=== PATIENT | female | born 1975 | race Caucasian/White ===

== ENCOUNTER 2019-07-24 22:56 | Emergency (ER) | payer SELFPAY ==
[2019-07-24] MEDS ORDERED: Benzocaine 20% Topical Spray UD MUCMEM ONE (23:00)
--- NOTE | 2019-07-24 23:02 | EDM.PDOC ---
ED HPI GENERAL MEDICAL PROBLEM - General Stated Complaint: TOOTH ACHE Time Seen by Provider: 07/24/19 23:00 Source of Information: Reports: Patient History Limitations: Reports: No Limitations - History of Present Illness INITIAL COMMENTS - FREE TEXT/NARRATIVE: HISTORY AND PHYSICAL: History of present illness: Patient is a 43-year-old female presenting to the emergency department for the chief complaint of tooth abscess. She states that she is managing this abscess with her dental provider and is scheduled to have her affected tooth pulled on August 01. She is states this has been going on for one month and was prescribed amoxicillin in the past, however it did not fully take the infection away. She states that her pain has increased today, rating it at a 10 out of 10. She describes it as throbbing and aching and has no found no alleviating factors. She also stated that she has pain in her ears bilaterally, on the left side of her head and jaw, and a pain in her throat. Patient was nauseated and dry heaved while talking, otherwise denies GI or complaints. Review of systems: As per history of present illness and below otherwise all systems reviewed and negative. Past medical history: As per history of present illness and as reviewed below otherwise noncontributory. Surgical history: As per history of present illness and as reviewed below otherwise noncontributory. Social history: See social history for further information Family history: As per history of present illness and as reviewed below otherwise noncontributory. Physical exam: General: Patient is a well-nourished and well-developed 43-year-old female. Alert and orientated. Nontoxic in appearance. Vital signs stable and reviewed by me. HEENT: Tender to palpation along left side of jaw, normocephalic, pupils equal and reactive bilaterally, negative for conjunctival pallor or scleral icterus, mucous membranes moist, TMs bulging bilaterally, throat clear, neck supple, trachea midline. Edematous and erythematous along the gumline of left upper #14 and #15 tooth, No drooling or trismus noted. No meningeal signs. No hot potato voice noted. Lungs: Clear to auscultation, breath sounds equal bilaterally, chest nontender. Heart: S1S2, regular rate and rhythm without overt murmur Abdomen: Soft, nondistended, nontender. Skin: Intact, warm, dry. No lesions or rashes noted. Extremities: Atraumatic, moves all extremities per self without difficulty or deficits, negative for cords or calf pain. Neurovascular unremarkable. Neuro: Awake, alert, oriented. Cranial nerves II through XII unremarkable. Cerebellum unremarkable. Motor and sensory unremarkable throughout. Exam nonfocal. Notes: Patient is a recovering addict and is requesting a pain medication without narcotics as they were offered to her. Supportive care measures were reviewed and discussed. Voices understanding and is agreeable to plan of care. Denies any further questions or concerns at this time. Diagnostics: None Therapeutics: Dental Balls, Torodol, Zofran Prescription: Diclofenac, Clindamycin Impression: Abcessed Tooth Plan: 1. Please take the antibiotic as prescribed. 2. Tylenol and/or ibuprofen as needed for pain management. "Tooth Balls" have been given to you; apply along the gumline every 2-3 hours as needed. Do not swallow these; external use only. 3. Follow-up with a dentist for definitive care. Return to the ED as needed and as discussed. Definitive disposition and diagnosis as appropriate pending reevaluation and review of above. dental Pain Score (Numeric/FACES): 10 - Related Data Allergies Allergy/AdvReac Type Severity Reaction Status Date / Time No Known Allergies Allergy Verified 07/24/19 23:14 Home Meds: Home Meds . [No Known Home Meds] 07/24/19 [History] ED ROS ENT - Review of Systems Review Of Systems: ROS reveals no pertinent complaints other than HPI. ED EXAM, ENT - Physical Exam Exam: See Below (See Dictation) Course - Vital Signs Last Recorded V/S: Last Vital Signs Temp 96.3 F 07/24/19 23:03 Pulse 84 07/24/19 23:03 Resp 17 07/24/19 23:03 BP 151/88 H 07/24/19 23:03 Pulse Ox 96 07/24/19 23:03 - Orders/Labs/Meds Meds: Medications Discontinued Medications Generic Name Dose Route Start Last Admin Trade Name Freq PRN Reason Stop Dose Admin Hydrocodone Bitart/Acetaminophen 1 tab 07/24/19 23:23 [place] 325-5 Mg PO 07/24/19 23:24 ONETIME ONE Benzocaine 1 each 07/24/19 23:00 07/24/19 23:16 Hurricaine One 20% MUCMEM 07/24/19 23:01 1 each ONETIME ONE Administration Clindamycin HCl 300 mg 07/24/19 23:23 07/24/19 23:30 Cleocin PO 07/24/19 23:24 300 mg ONETIME ONE Administration Ketorolac Tromethamine 60 mg 07/24/19 23:30 Toradol IM 07/24/19 23:31 ONETIME ONE Lidocaine HCl 15 ml 07/24/19 23:00 07/24/19 23:16 Xylocaine 2% Viscous PO 07/24/19 23:01 15 ml ONETIME ONE Administration Ondansetron HCl 4 mg 07/24/19 23:23 07/24/19 23:29 Zofran Odt PO 07/24/19 23:24 4 mg ONETIME ONE Administration Departure - Departure Time of Disposition: 23:35 Disposition: Home, Self-Care 01 Clinical Impression: Dental abscess - Discharge Information Instructions: Dental Abscess, [id number] Referrals: PCP,None [Primary Care Provider] - Additional Instructions: The following information is given to patients seen in the emergency department who are being discharged to home. This information is to outline your options for follow-up care. We provide all patients seen in our emergency department with a follow-up referral. The need for follow-up, as well as the timing and circumstances, are variable depending upon the specifics of your emergency department visit. If you don't have a primary care physician on staff, we will provide you with a referral. We always advise you to contact your personal physician following an emergency department visit to inform them of the circumstance of the visit and for follow-up with them and/or the need for any referrals to a consulting specialist. The emergency department will also refer you to a specialist when appropriate. This referral assures that you have the opportunity for follow-up care with a specialist. All of these measure are taken in an effort to provide you with optimal care, which includes your follow-up. Under all circumstances we always encourage you to contact your private physician who remains a resource for coordinating your care. When calling for follow-up care, please make the office aware that this follow-up is from your recent emergency room visit. If for any reason you are refused follow-up, please contact the [facility] Emergency Department at and asked to speak to the emergency department charge nurse. NICOLAS [facility] [address] [place] [address] [facility] [address] [place] [id number] 1. Please take the antibiotic as prescribed. 2. Tylenol and/or ibuprofen as needed for pain management. "Tooth Balls" have been given to you; apply along the gumline every 2-3 hours as needed. Do not swallow these; external use only. 3. Follow-up with a dentist for definitive care. Return to the ED as needed and as discussed.
[2019-07-24] MEDS: Lidocaine 2% Viscous Solution 15 ML Cup PO ONE (23:16)
[2019-07-24] MEDS ORDERED: Clindamycin HCl 150 MG Cap PO ONE (23:23)
[2019-07-24] MEDS ORDERED: Acetaminophen/HYDROcodone 325-5 MG Tab PO ONE (23:23)
[2019-07-24] MEDS ORDERED: Ondansetron 4 MG Tab.DIS PO ONE (23:23)
[2019-07-24] MEDS ORDERED: Ketorolac 60 MG/2 ML SDV IM ONE (23:30)
== END 2019-07-24 23:52 | disposition home or self-care (01) ==
LOC: MW.ED 22:56
DX: K04.7 Periapical abscess without sinus (principal)
CPT/HCPCS: 96372; 99282; A9270; J1885